=== PATIENT | male | born 1995 | race Two or more races ===

== ENCOUNTER 2024-03-17 20:15 | Emergency (ER) | payer OTHER ==
[~2024-03-17] VITALS: Ht 180.3 cm; Wt 100.0 kg
[2024-03-17 22:55] VITALS: TEMP 97.9
[2024-03-18] MEDS: AMOX TR/POT CLAV 875 MG/125 MG TABLET PO ONE (01:50)
[2024-03-18] MEDS: NEOMYCIN/POLYMYXIN B/HYDROCORT 7.5 ML OPHTHALMIC SUSPENSION OS ONE (01:50)
[2024-03-18] MEDS: TraMADol HCL 50 MG TABLET PO ONE (01:50)
[2024-03-18 01:54] VITALS: BP 132/76; PULSE 71; RESP 16; O2SAT 98
== END 2024-03-18 02:25 ==
LOC: EMS 20:15
DX: H66.92 Otitis media, unspecified, left ear (principal); H60.92 Unspecified otitis externa, left ear
CPT/HCPCS: 99284; Z7502; Z7610